=== PATIENT | female | born 1980 | race Caucasian/White ===

== ENCOUNTER 2017-06-26 14:19 | Inpatient (IN) | payer MEDICAID ==
[~2017-06-26] VITALS: Ht 137.2 cm; Wt 61.2 kg
[~2017-06-26 14:19] MED LIST: PRENATAL VIT
[2017-06-26 14:34] VITALS: BP 136/60
--- NOTE | 2017-06-26 16:08 | NUR ---
Patient ambulated to bed 4. RN evaluating patient at bedside.
--- NOTE | 2017-06-26 16:12 | NUR ---
37F BIB FAMILY C/O BL SIDES OF ABDOMEN PRESSURE, NON-RADIATING, 5/10 X 3 DAYS; PT STATES NO N/V/D AT THIS TIME; ABDOMEN SOFT, NON-TENDER, ACTIVE BOWEL SOUNDS X 4 QUADRANTS; PT STATES APPROX 8 WEEKS AT THIS TIME, SAW OB AND PT WAS TOLD BABY HAD NO HEARTBEAT AND PT WOULD NEED A D&C; PT WAS TOLD THERE WERE NO AVAILABLE APPTS FOR THE NEXT 2 WEEKS; PT AA&OX4, PERRLA, BL LUNG SOUNDS CLEAR, RR EVEN/UNLABORED, SKIN IS WARM/DRY/INTACT AT THIS TIME; PT RESTING IN BED WITH HOB ELEVATED AND IN LOWEST POSITION; POSITIONED FOR COMFORT; ER MD MADE AWARE OF STATUS. WILL CONTINUE TO MONITOR.
--- NOTE | 2017-06-26 16:50 | NUR ---
RECEIVED REPORT FROM THE ER NURSE. WILL GET ROOM READY AND WAIT FOR PT TO ARRIVE ON THE UNIT.
[2017-06-26] MEDS ORDERED: ONDANSETRON 4 MG/2 ML VIAL IVP PRN (16:55)
[2017-06-26] MEDS ORDERED: ACETAMINOPHEN 325 MG TAB PO PRN (16:55)
--- NOTE | 2017-06-26 17:07 | NUR ---
REPORT GIVEN TO BERTHA ARCE.
[2017-06-26 17:13] LABS: BASOPHILS # (AUTO) 0.3 K/uL (0.00-0.22); BASOPHILS % (AUTO) 4.2 % (0.0-2.0); EOSINOPHILS # (AUTO) 0.1 K/uL (0-0.4); EOSINOPHILS % (AUTO) 1.5 % (0.0-4.0); HEMATOCRIT 40.8 % (36-48); HEMOGLOBIN 13.3 g/dL (12.0-16.0); LYMPHOCYTES # (AUTO) 1.7 K/uL (2.5-16.5); LYMPHOCYTES % (AUTO) 21.3 % (20.5-51.1); MEAN CORPUSCULAR HEMOGLOBIN 29 pg (27-31); MEAN CORPUSCULAR HGB CONC 33 g/dL (33-37); MEAN CORPUSCULAR VOLUME 88 fL (80-94); MONOCYTES # (AUTO) 0.7 K/uL (0.8-1.0); NEUTROPHILS # (AUTO) 5.2 K/uL (1.8-7.7); PLATELET COUNT (AUTO) 245 K/uL (140-450); RED BLOOD CELL COUNT(AUTO) 4.65 MIL/uL (4.20-5.40); RED CELL DISTRIBUTION WIDTH 13.9 % (11.6-13.7)
--- NOTE | 2017-06-26 17:15 | NUR ---
Patient will be admitted to care of (DR. CLOUD DENTAL AIDE CONSULT). Admited to TELEMETRY. Will go to room 119B. Belongings list completed. Report to BERTHA ARCE.
--- NOTE | 2017-06-26 17:17 | NUR ---
ARRIVED ON THE UNIT ON A GURNEY WITH 2 ER NURSES. PT IS AMBULATING FROM THE GURNEY IN THE HALLWAY TO THE B BED. PT IS AAOX4. ACCOMPANIED BY SISTER IN LAW AND NIECE. SKIN IS INTACT. DENIES PAIN. DENIES VAGINAL BLEEDING. IV R AC 20G SL. V/S WITHIN NORMAL RANGE. MRSA DONE. PT HAD TO USE THE RESTROOM. PT GAIT STEADY. BACK IN BED. WILL START ON ADMISSION PROCESS. WILL CONTINUE TO MONITOR PT.
[2017-06-26 17:25] LABS: ANION GAP 14.7 (8-16); CARBON DIOXIDE 24.2 mmol/L (21-32); CREATININE 0.5 mg/dL (0.6-1.3); POTASSIUM 3.9 mmol/L (3.5-5.1)
[2017-06-26 17:31] LABS: TOTAL BILIRUBIN 0.3 mg/dL (0.0-1.0)
[2017-06-26 17:39] LABS: PROTHROMBIN TIME 10.4 secs (10.8-13.4)
[2017-06-26 17:42] VITALS: BP 101/71
[2017-06-26] MEDS: NACL 0.9% 1,000 ML IV SCH (18:06)
[2017-06-26 18:12] LABS: APPEARANCE,URINE CLEAR (CLEAR); BILIRUBIN,URINE NEGATIVE (NEGATIVE); BLOOD, URINE NEGATIVE (NEGATIVE); COLOR,URINE YELLOW (YELLOW); LEUKOCYTE ESTERASE ,URINE NEGATIVE (NEGATIVE); NITRITE, URINE NEGATIVE (NEGATIVE); UGLUCOSE NEGATIVE (NEGATIVE)
[2017-06-26 18:18] LABS: CHOL/HDL RATIO 3.6 (1-4.5); FREE T4 (FREE THYROXINE) 0.98 ng/dL (0.76-1.46); PHOSPHORUS 4.2 mg/dL (2.5-4.9); THYROID STIMULATING HORMONE 2.22 uIU/mL (0.34-3.74)
[2017-06-26 18:23] LABS: BARBITURATE, URINE NEG. ng/ml (NEG <=200); BENZODIAZEPINE, URINE NEG. ng/mL (NEG <=200); CANNABINOID, URINE NEG. ng/mL (NEG <=50); COCAINE, URINE NEG. ng/mL (NEG <=300); OPIATE, URINE NEG. ng/mL (NEG <=2000); PHENCYCLIDINE SCREEN,URINE NEG. ng/mL (NEG <=25)
--- NOTE | 2017-06-26 18:34 | NUR ---
PT RESTING COMFORTABLY. FAMILY AT BEDSIDE. DENIES PAIN. JUST HUNGRY. STILL WAITING ON DR SYKES FOR DIET. WILL CONTINUE TO MONITOR PT.
--- NOTE | 2017-06-26 19:15 | NUR ---
ENDORSED PT TO THE TRACK CAR OPERATOR NURSE AT BEDSIDE FOR CONTINUITY OF CARE. PT IS IN STABLE CONDITION.
--- NOTE | 2017-06-26 19:20 | NUR ---
RECEIVED FROM AM RN IN BED AWAKE AND ALERT. FAMILY MEMBERS WITH HER. CHINESE SPEAKING. EXPLAINED NPO STATUS TO HER. A/O X 4. ROM X 4. IVF SITE TO RAC#20 INTACT AND NO INFILTRATION NOTED. CALL LIGHT WITH IN REACH AND CARE PLAN FOR THE NIGHT DISCUSSED WITH HER. AFEBRILE. TELEMETRY MONITORING. DX. OF RETAINED PRODUCT OF MISCONCEPTION.
--- NOTE | 2017-06-26 19:40 | NUR ---
PT. REFUSED SEQUENTIALS RT AMBULATES A LOT TO RESTROOM. INDEPENDENT. ROM X 4.
[2017-06-26 19:50] VITALS: BP 91/56
--- NOTE | 2017-06-26 20:53 | NUR ---
CYTOTEC TABLET ORDERED WILL BE DELIVERED BY COUNTER PROFESSIONAL. INFORMED PT. ABOUT ITS USE . "ITALO"
[2017-06-26] MEDS ORDERED: MISOPROSTOL 100 MCG TAB ONE ×2 (21:17→21:18)
[2017-06-26] MEDS: DOCUSATE SODIUM 100 MG GELCAP PO SCH (21:36)
[2017-06-26] MEDS: MISOPROSTOL 100 MCG TAB VG SCH (21:37)
--- NOTE | 2017-06-26 23:44 | NUR ---
MD. Bryson SYKES IN HERE TO SEE PT. WITH RESIDENT MD. HOWARD TO EAT REGULAR DIET NOW RT RESIDENT TOLD RN IN AM TO HOLD FOOD FOR RT WE DON'T KNOW YET IF SHE WILL BE VOMITING OR NAUSEOUS OF THE CYTOTEC. NO NAUSEA AND VOMITING NOTED AT THIS TIME.
[2017-06-27] VITALS (7 sets, daily range): BP systolic 89–110; BP diastolic 52–70
--- NOTE | 2017-06-27 00:07 | NUR ---
PT. PROVIDED WITH DINNER REQUESTED. VERBALIZES WELL. STATED HER PAIN IS TOLERABLE FOR NOW. REFUSED PAIN MEDICATION.
[2017-06-27] MEDS: MISOPROSTOL 100 MCG TAB VG SCH ×4 (00:37→12:22)
[2017-06-27] MEDS: HYDROcodone/APAP 7.5/325 MG 1 TAB PO PRN ×3 (00:43→17:48)
--- NOTE | 2017-06-27 00:51 | NUR ---
COMPLAINED OF LOWER ABDOMINAL PAIN AND SIDES. REQUESTED FOR PAIN RELIEVER. MEDICATED ORDERED. ABLE TO VERBALIZE NEEDS WELL.
[2017-06-27] MEDS ORDERED: MORPHINE SULFATE 2 MG/ML SYR IVP PRN (02:45)
[2017-06-27] MEDS ORDERED: MORPHINE SULFATE 2 MG/ML SYR ONE (03:10)
--- NOTE | 2017-06-27 03:14 | NUR ---
PT. COMPLAINED OF TOO MUCH PAIN NOW AND REQUESTING FOR MORE PAIN RELIEVER. INFORMED MD RESIDENT REYNOLDS PER PT.S REQUEST. WITH NEW ORDER TO GIVE MORPHINE 2 MG IVP NOW. MEDICATED REQUESTED. PT. NOTED WITH TINGED OF BLOOD NOW IN URINE.
[2017-06-27] MEDS ORDERED: MISOPROSTOL 100 MCG TAB ONE ×2 (03:41)
--- NOTE | 2017-06-27 04:02 | NUR ---
SLEEPING POST MORPHINE IVP MEDICATION. WAKES UP EASILY WHEN TOUCHED. NO FURTHER PAIN COMPLAINT AT THIS TIME.
[2017-06-27 06:20] LABS: BASOPHILS # (AUTO) 0.2 K/uL (0.00-0.22); BASOPHILS % (AUTO) 1.5 % (0.0-2.0); EOSINOPHILS # (AUTO) 0.1 K/uL (0-0.4); EOSINOPHILS % (AUTO) 0.7 % (0.0-4.0); HEMATOCRIT 36.7 % (36-48); HEMOGLOBIN 12.2 g/dL (12.0-16.0); LYMPHOCYTES # (AUTO) 1.7 K/uL (2.5-16.5); LYMPHOCYTES % (AUTO) 16.2 % (20.5-51.1); MEAN CORPUSCULAR HEMOGLOBIN 29 pg (27-31); MEAN CORPUSCULAR HGB CONC 33 g/dL (33-37); MEAN CORPUSCULAR VOLUME 87 fL (80-94); MONOCYTES # (AUTO) 0.4 K/uL (0.8-1.0); MONOCYTES % (AUTO) 4.2 % (1.7-9.3); NEUTROPHILS % (AUTO) 77.4 % (42.2-75.2); PLATELET COUNT (AUTO) 256 K/uL (140-450); RED BLOOD CELL COUNT(AUTO) 4.19 MIL/uL (4.20-5.40); RED CELL DISTRIBUTION WIDTH 14.1 % (11.6-13.7); WHITE BLOOD COUNT (AUTO) 10.4 K/uL (4.8-10.8)
[2017-06-27 06:47] LABS: ANION GAP 15.5 (8-16); CARBON DIOXIDE 21.5 mmol/L (21-32); CREATININE 0.5 mg/dL (0.6-1.3)
[2017-06-27 06:52] LABS: MAGNESIUM 1.7 mg/dL (1.8-2.4); PHOSPHORUS 3.6 mg/dL (2.5-4.9)
--- NOTE | 2017-06-27 07:32 | NUR ---
ENDORSED TO THE NEXT RN FOR CONTINUITY OF CARE. SLEEPING. NO RESTLESSNESS NOTED AT THIS TIME. WAKES UP EASILY WHEN TOUCHED OR CALLED BY NAME.
[2017-06-27] MEDS ORDERED: MAG SULF 2000 MG/WATER PREMIX 50 ML IV ONE (07:40)
[2017-06-27] MEDS: DOCUSATE SODIUM 100 MG GELCAP PO SCH ×2 (10:22→20:18)
[2017-06-27] MEDS: MULTIVIT/MIN/CA/FE/FA 1 TAB PO SCH (10:24)
--- NOTE | 2017-06-27 10:25 | NUR ---
ADMINISTERED MORNING MEDS. IT WAS LATE D/T A TRANSFER TO ICU. PT TOLERATED WELL. C/O PAIN. ADMINSTERED PAIN MEDS. WILL CONTINUE TO MONITOR PT.
--- NOTE | 2017-06-27 10:50 | NUR ---
PATIENT HAS BEEN SCREENED AND CATEGORIZED MODERATE NUTRITION RISK. PATIENT WILL BE SEEN WITHIN 3-5 DAYS OF ADMISSION. 06/29/17 - 07/01/17 OPAL SANCHEZ MBA, RD
--- NOTE | 2017-06-27 13:10 | NUR ---
PT RESTING COMFORTABLY. FAMILY AT BEDSIDE. NO SIGNS OF DISTRESS. WILL CONTINUE TO MONITOR PT.
--- NOTE | 2017-06-27 15:00 | NUR ---
PT HAD A SMALL SAC LIKE PRODUCT IN THE TOILET. DIAMETER SIZE OF A QUARTER. PT CLAIMS SHE IS STILL BLEEDING. CHANGED 3 PADS SO FAR. DENIES PAIN. FAMILY AT BEDSIDE. WILL CONTINUE TO MONITOR PT.
[2017-06-27] MEDS: NACL 0.9% 1,000 ML IV SCH ×2 (17:41→17:48)
--- NOTE | 2017-06-27 17:49 | NUR ---
ADMINISTERED PAIN MED AND NEW NS BAG. PT TOLERATED WELL. WILL CONTINUE TO MONITOR PT.
--- NOTE | 2017-06-27 19:15 | NUR ---
RECEIVED REPORT FROM DAY SHIFT NURSE AT PT BEDSIDE. PT IS A/OX4 ON ROOM AIR, SAMI SPEAKING. SKIN INTACT, PT HAS 20 GAUGE IV ON HER RIGHT AC INFUSING NS@ 50ML/HR, ASYMPTOMATIC AND INTACT, PT DENIES PAIN AT THIS TIME. NO SIGNS OF DISTRESS NOTED, PT IS IN STABLE CONDITION. DISCUSSED PLAN OF CARE WITH PT, PT VERBALIZED UNDERSTANDING, PT [id number] IS AT BEDSIDE. BED IN LOW POSITION, CALL LIGHT IS WITHIN REACH. WILL CONTINUE TO MONITOR.
--- NOTE | 2017-06-27 20:25 | NUR ---
ADMINISTERED SCHEDULED MEDICATIONS, PT TOLERATED WELL. NO SIGNS OF DISTRESS NOTED. PT IN STABLE CONDITION. BED IN LOW POSITION, CALL LIGHT IS WITHIN REACH. WILL CONTINUE TO MONITOR.
--- NOTE | 2017-06-27 22:45 | NUR ---
PT RESTING, SLEEPING, IN STABLE CONDITION. NO SIGNS OF DISTRESS NOTED. BED IN LOW POSITION, CALL LIGHT IS WITHIN REACH. WILL CONTINUE TO MONITOR.
[2017-06-28] VITALS: BP 91/59
--- NOTE | 2017-06-28 01:00 | NUR ---
PT AWAKE, DENIES PAIN AT THIS TIME. PT STABLE, NO SIGNS OF DISTRESS NOTED. BED IN LOW POSITION, CALL LIGHT WITHIN REACH. WILL CONTINUE TO MONITOR.
--- NOTE | 2017-06-28 02:47 | NUR ---
FIXED TELE LEADS. PT RESTING. FREE OF DISTRESS. PT STABLE. BED IN LOW POSITION, CALL LIGHT WITHIN REACH. WILL CONTINUE TO MONITOR.
[2017-06-28 04:00] VITALS: BP 93/61
--- NOTE | 2017-06-28 04:20 | NUR ---
PT RESTING, SLEEPING, FREE OF DISTRESS. PT STABLE. VITAL SIGNS WITHIN NORMAL LIMITS. BED IN LOW POSITION, CALL LIGHT WITHIN REACH. WILL CONTINUE TO MONITOR.
--- NOTE | 2017-06-28 05:30 | NUR ---
PT STATES SHE HAS CHANGED TWO PADS TONIGHT BUT THEY WERE NOT SOAKED. SUPERVISOR AGENCY APPOINTMENTS CHANGED BED LINEN BECAUSE THE LINEN GOT A LITTLE STAINED WITH BLOOD. PT STABLE, NO SIGNS OF DISTRESS NOTED. BED IN LOW POSITION, CALL LIGHT IS WITHIN REACH. WILL CONTINUE TO MONITOR.
--- NOTE | 2017-06-28 06:15 | NUR ---
ASKED PT TO GIVE ME AN ESTIMATE OF HER WEIGHT BECAUSE HER CHART SAYS SHE WEIGHS 726KG (1600LBS) AND THAT DOESN'T SEEM RIGHT. PT STATED SHE WEIGHS ABOUT 133LBS. PT IS STABLE. NO SIGNS OF DISTRESS NOTED. BED IN LOW POSITION, CALL LIGHT IS WITHIN REACH. WILL CONTINUE TO MONITOR.
[2017-06-28 06:19] LABS: BASOPHILS # (AUTO) 0.2 K/uL (0.00-0.22); BASOPHILS % (AUTO) 2.1 % (0.0-2.0); EOSINOPHILS # (AUTO) 0.3 K/uL (0-0.4); EOSINOPHILS % (AUTO) 3.4 % (0.0-4.0); HEMATOCRIT 35.3 % (36-48); HEMOGLOBIN 11.6 g/dL (12.0-16.0); LYMPHOCYTES # (AUTO) 2.7 K/uL (2.5-16.5); LYMPHOCYTES % (AUTO) 31.6 % (20.5-51.1); MEAN CORPUSCULAR HEMOGLOBIN 29 pg (27-31); MEAN CORPUSCULAR HGB CONC 33 g/dL (33-37); MEAN CORPUSCULAR VOLUME 89 fL (80-94); MONOCYTES # (AUTO) 0.6 K/uL (0.8-1.0); MONOCYTES % (AUTO) 7.3 % (1.7-9.3); NEUTROPHILS # (AUTO) 4.6 K/uL (1.8-7.7); NEUTROPHILS % (AUTO) 55.6 % (42.2-75.2); PLATELET COUNT (AUTO) 208 K/uL (140-450); RED BLOOD CELL COUNT(AUTO) 3.98 MIL/uL (4.20-5.40); RED CELL DISTRIBUTION WIDTH 14.3 % (11.6-13.7); WHITE BLOOD COUNT (AUTO) 8.4 K/uL (4.8-10.8)
[2017-06-28 06:44] LABS: ANION GAP 14.4 (8-16); CARBON DIOXIDE 22.3 mmol/L (21-32); CREATININE 0.4 mg/dL (0.6-1.3); POTASSIUM 3.7 mmol/L (3.5-5.1)
[2017-06-28 06:48] LABS: MAGNESIUM 1.9 mg/dL (1.8-2.4); PHOSPHORUS 3.5 mg/dL (2.5-4.9)
--- NOTE | 2017-06-28 07:35 | NUR ---
ENDORSED PT TO DAY SHIFT RN AT BEDSIDE FOR CONTINUITY OF CARE. PT IS STABLE.
--- NOTE | 2017-06-28 07:40 | NUR ---
PATIENT RECEIVED ASLEEP, EASY TO AROUSE. PATIENT IS ALERT AND ORIENTED ABLE TO MAKE NEEDS KNOWN. DENEIS PAIN AND REPORTS THAT LOCHIA IS VERY SCANT.
[2017-06-28 08:42] VITALS: BP 85/56
[2017-06-28] MEDS ORDERED: PRETAB PO (10:13)
[2017-06-28] MEDS ORDERED: ACET-1182 PO (10:13)
[2017-06-28] MEDS ORDERED: IBUP-2213 PO (10:13)
--- NOTE | 2017-06-28 12:15 | NUR ---
PATIENT AWAKE AND SITTING UP IN BED, HOPING TO GO HOME TODAY
[2017-06-28 12:44] VITALS: BP 99/69
[2017-06-28] MEDS: DOCUSATE SODIUM 100 MG GELCAP PO SCH (13:55)
[2017-06-28] MEDS: MULTIVIT/MIN/CA/FE/FA 1 TAB PO SCH (14:15)
[2017-06-28 16:00] VITALS: BP 98/70
--- NOTE | 2017-06-28 16:45 | NUR ---
PATIENT DISCHARGED TO HOME. IV REMOVED INTACT. PATIENT GIVEN DISCHARGE INSTRUCTIONS BY STUDENT NURSE AND WAS ABLE TO VERBALIZE IMPORTANCE OF FOLLOW UP WITH HER DOCTOR. TELE UNIT REMOVED AND PATIENT DISCHARGED HOME WITH ALL BELONGINGS
== END 2017-06-28 16:40 | disposition home or self-care (01) | DRG 564 ==
LOC: MED 14:19 → MTU 17:01
PROVIDERS: ADMIT Student in an Organized Health Care Education/Training Program; ATTEND Student in an Organized Health Care Education/Training Program
PROC: 10A07ZX Abortion of Products of Conception, Abortifacient, Via Natural or Artificial Opening (ICD-10-PCS; principal; 2017-06-26)
DX: O03.4 Incomplete spontaneous abortion without complication (principal); E83.42 Hypomagnesemia; O99.284 Endocrine, nutritional and metabolic diseases complicating childbirth; E78.5 Hyperlipidemia, unspecified; N88.8 Other specified noninflammatory disorders of cervix uteri; N83.291 Other ovarian cyst, right side; E66.01 Morbid (severe) obesity due to excess calories; O99.211 Obesity complicating pregnancy, first trimester; R74.0 Nonspecific elevation of levels of transaminase and lactic acid dehydrogenase [LDH]; Z68.38 Body mass index [BMI] 38.0-38.9, adult
CPT/HCPCS: 36415; 76817; 80048; 80053; 80305; 81003; 82140; 82150; 83036; 83605; 83690; 83735; 83880; 84100; 84439; 84443; 84484; 84702; 85025; 85610; 85730; 86900; 86901; 87040; 87081; 87086; 93005; 99285; J2270; J3475; J7030

== ENCOUNTER 2019-03-26 17:11 | Emergency (ER) | payer MEDICAID ==
[~2019-03-26] VITALS: Ht 154.9 cm; Wt 61.2 kg
[~2019-03-26 17:11] MED LIST changes: +ACET-1182 PO; +IBUP-2213 PO; -PRENATAL VIT; +PRETAB PO
[2019-03-26 17:20] VITALS: BP 106/65
--- NOTE | 2019-03-26 17:20 | NUR ---
TO BED # 02 AMBULATORY
--- NOTE | 2019-03-26 17:50 | NUR ---
PT C/O LLQ CRAMPING ABDOMINAL PAIN RADIATES TO THE LEFT LOWER BACK SINCE YESTERDAY. PT IS 8 WEEKS AND HAS NOT SEEN OB. DENIES V/N/D. SKIN IS PINK/WARM/DRY; AAOX4 WITH EVEN AND STEADY GAIT; LUNGS CLEAR BL; HR EVEN AND REGULAR; PT DENIES ANY FEVER, CP, SOB, OR COUGH AT THIS TIME; PATIENT STATES PAIN OF 7/10 AT THIS TIME; VSS; PATIENT POSITIONED FOR COMFORT; HOB ELEVATED; BEDRAILS UP X1; BED DOWN. ER MD MADE AWARE OF PT STATUS.
--- NOTE | 2019-03-26 17:59 | NUR ---
Dr. Torres evaluating patient at bedside.
[2019-03-26] MEDS ORDERED: ACETAMINOPHEN EXTRA STRENGTH 500 MG TAB PO ONE (18:05)
[2019-03-26 19:00] VITALS: BP 96/65
--- NOTE | 2019-03-26 19:00 | NUR ---
Patient discharged with v/s stable. Written and verbal after care instructions given and explained. Patient verbalized understanding. Ambulatory with steady gait. All questions addressed prior to discharge. Advised to follow up with PMD.
== END 2019-03-26 19:00 | disposition home or self-care (01) ==
LOC: MED 17:11
DX: O26.891 Other specified pregnancy related conditions, first trimester (principal); R10.32 Left lower quadrant pain; Z3A.01 Less than 8 weeks gestation of pregnancy; Z98.890 Other specified postprocedural states; Z79.899 Other long term (current) drug therapy
CPT/HCPCS: 81002; 81025; 99282

== ENCOUNTER 2019-05-04 14:48 | Emergency (ER) | payer MEDICAID ==
[~2019-05-04] VITALS: Ht 154.9 cm; Wt 63.5 kg
[2019-05-04 15:30] VITALS: BP 108/63
--- NOTE | 2019-05-04 15:40 | NUR ---
PT TO WAIT IN ER LOBBY. [id number]
--- NOTE | 2019-05-04 16:41 | NUR ---
Brianna chacon in [facility] - 05/04/19 at 1647 by [facility] PT TO ER BED 4
--- NOTE | 2019-05-04 17:25 | NUR ---
Patient taken to bed 7.
--- NOTE | 2019-05-04 17:25 | NUR ---
BIB . AAO X4 C/O ABDOMINAL PAIN 12/11 SINCE YESTERDAY. PT DENIES VAGINAL BLEEDING, TRAUMA/INJURY. PT WAS SENT BY PCP FOR OB US FOR THREATENED . PT STATES LMP 01/31/19, 13 WEEKS , A1. PT DENIES FEVER, N/V/D. ER TO EVALUATE PT.
--- NOTE | 2019-05-04 18:39 | NUR ---
DR. SARAH AT BEDSIDE.
[2019-05-04 18:54] VITALS: BP 105/70
--- NOTE | 2019-05-04 18:57 | NUR ---
Patient discharged with v/s stable. Written and verbal after care instructions given and explained. Patient alert, oriented and verbalized understanding of instructions. Ambulatory with steady gait. All questions addressed prior to discharge. ID band removed. Patient advised to follow up with PMD. Rx of ZOFRAN 8 MG given. Patient educated on indication of medication including possible reaction and side effects. Opportunity to ask questions provided and answered.
== END 2019-05-04 18:57 | disposition home or self-care (01) ==
LOC: MED 14:48
DX: O21.8 Other vomiting complicating pregnancy (principal); O26.891 Other specified pregnancy related conditions, first trimester; R10.32 Left lower quadrant pain; Z3A.12 12 weeks gestation of pregnancy; Z98.890 Other specified postprocedural states; Z79.899 Other long term (current) drug therapy
CPT/HCPCS: 76801; 81002; 81025; 99284

== ENCOUNTER 2019-09-01 09:47 | Observation (INO) | payer MEDICAID ==
[~2019-09-01] VITALS: Ht 142.2 cm; Wt 66.2 kg
[2019-09-01] MEDS ORDERED: NOVN SUBQ (10:26)
[2019-09-01] MEDS ORDERED: NOVR SUBQ (10:26)
[2019-09-01 10:35] VITALS: BP 115/72
[2019-09-01] MEDS ORDERED: INFLUENZA VACCINE QUAD 0.5 ML SYR IMVAC PRN (10:40)
== END 2019-09-01 12:22 | disposition home or self-care (01) ==
LOC: MLD 09:47
PROVIDERS: ADMIT Obstetrics & Gynecology; ATTEND Obstetrics & Gynecology
DX: O24.419 Gestational diabetes mellitus in pregnancy, unspecified control (principal); Z3A.31 31 weeks gestation of pregnancy
CPT/HCPCS: 59025; 76815; G0378; Q0092; 90715

== ENCOUNTER 2019-09-04 14:01 | Observation (INO) | payer MEDICAID ==
[~2019-09-04] VITALS: Ht 129.5 cm; Wt 66.2 kg
[~2019-09-04 14:01] MED LIST changes: +NOVN SUBQ; +NOVR SUBQ
[2019-09-04 16:43] LABS: BASOPHILS % (AUTO) 0.3 % (0.0-2.0); EOSINOPHILS # (AUTO) 0.1 K/uL (0-0.4); EOSINOPHILS % (AUTO) 1.4 % (0.0-4.0); HEMATOCRIT 33.2 % (36-48); HEMOGLOBIN 10.8 g/dL (12.0-16.0); LYMPHOCYTES # (AUTO) 1.3 K/uL (2.5-16.5); LYMPHOCYTES % (AUTO) 16.2 % (20.5-51.1); MEAN CORPUSCULAR HEMOGLOBIN 26 pg (27-31); MEAN CORPUSCULAR HGB CONC 32 g/dL (33-37); MONOCYTES # (AUTO) 0.7 K/uL (0.8-1.0); MONOCYTES % (AUTO) 7.9 % (1.7-9.3); NEUTROPHILS # (AUTO) 6.2 K/uL (1.8-7.7); NEUTROPHILS % (AUTO) 74.2 % (42.2-75.2); PLATELET COUNT (AUTO) 263 K/uL (140-450); RED CELL DISTRIBUTION WIDTH 14.9 % (11.6-13.7); WHITE BLOOD COUNT (AUTO) 8.3 K/uL (4.8-10.8)
[2019-09-04 17:01] LABS: ANION GAP 18.1 (8-16); CARBON DIOXIDE 18.6 mmol/L (21-32); CREATININE 0.4 mg/dL (0.6-1.3); POTASSIUM 3.7 mmol/L (3.5-5.1)
[2019-09-04 17:07] LABS: ALBUMIN 2.5 g/dL (3.4-5.0); TOTAL BILIRUBIN 0.2 mg/dL (0.0-1.0)
[2019-09-04 20:25] VITALS: BP 115/72
== END 2019-09-04 21:00 | disposition home or self-care (01) ==
LOC: MLD 14:01 → MFCC 14:23
PROVIDERS: ADMIT Obstetrics & Gynecology; ATTEND Obstetrics & Gynecology
DX: O24.419 Gestational diabetes mellitus in pregnancy, unspecified control (principal); Z3A.32 32 weeks gestation of pregnancy
CPT/HCPCS: 36415; 76819; 80053; 82948; 85025; 86886; 86900; 86901; G0378; Q0092; 59025; 81000

== ENCOUNTER 2019-10-21 16:41 | Inpatient (IN) | payer MEDICAID ==
[~2019-10-21] VITALS: Ht 127 cm; Wt 67.1 kg
[~2019-10-21 16:41] MED LIST changes: -ACET-1182 PO; -IBUP-2213 PO
[2019-10-21] MEDS ORDERED: CITRIC ACID/SODIUM CITRATE 30 ML UDC PO SCH (17:35)
[2019-10-21] MEDS ORDERED: LACTATED RINGERS 1,000 ML IV SCH (17:35)
[2019-10-21 18:18] LABS: BASOPHILS % (AUTO) 0.4 % (0.0-2.0); EOSINOPHILS # (AUTO) 0.1 K/uL (0-0.4); EOSINOPHILS % (AUTO) 1.1 % (0.0-4.0); HEMOGLOBIN 11.1 g/dL (12.0-16.0); LYMPHOCYTES # (AUTO) 2.1 K/uL (2.5-16.5); LYMPHOCYTES % (AUTO) 28.4 % (20.5-51.1); MEAN CORPUSCULAR HEMOGLOBIN 25 pg (27-31); MEAN CORPUSCULAR HGB CONC 32 g/dL (33-37); MONOCYTES # (AUTO) 0.4 K/uL (0.8-1.0); MONOCYTES % (AUTO) 5.9 % (1.7-9.3); NEUTROPHILS # (AUTO) 4.8 K/uL (1.8-7.7); NEUTROPHILS % (AUTO) 64.2 % (42.2-75.2); PLATELET COUNT (AUTO) 202 K/uL (140-450); RED BLOOD CELL COUNT(AUTO) 4.42 MIL/uL (4.20-5.40); RED CELL DISTRIBUTION WIDTH 16.2 % (11.6-13.7); WHITE BLOOD COUNT (AUTO) 7.5 K/uL (4.8-10.8)
[2019-10-21 19:20] VITALS: BP 125/82
[2019-10-21 19:20] LABS: ANION GAP 18.4 (8-16); CARBON DIOXIDE 20.7 mmol/L (21-32); CREATININE 0.7 mg/dL (0.6-1.3); POTASSIUM 4.1 mmol/L (3.5-5.1)
[2019-10-21 19:22] LABS: APPEARANCE,URINE CLEAR (CLEAR); BILIRUBIN,URINE NEGATIVE (NEGATIVE); BLOOD, URINE NEGATIVE (NEGATIVE); COLOR,URINE YELLOW (YELLOW); LEUKOCYTE ESTERASE ,URINE NEGATIVE (NEGATIVE); NITRITE, URINE NEGATIVE (NEGATIVE); UGLUCOSE NEGATIVE (NEGATIVE)
[2019-10-21] MEDS ORDERED: ceFAZolin 1,000 MG VIAL ONE (19:23)
[2019-10-21 19:26] LABS: ALBUMIN 2.4 g/dL (3.4-5.0); TOTAL BILIRUBIN 0.2 mg/dL (0.0-1.0)
[2019-10-21 19:27] LABS: PROTHROMBIN TIME 9.2 secs (10.8-13.4); URIC ACID 3.4 mg/dL (2.6-7.2)
[2019-10-21 19:38] LABS: RBC,URINE 0 /HPF (0-5)
[2019-10-21 19:39] LABS: HYALINE CASTS, URINE 0-10 /LPF (None Seen); WBC,URINE 0-5 /HPF (0-5)
[2019-10-21] MEDS ORDERED: BUPIVACAINE-MPF 0.75% 10 ML VIAL INJ ONE (19:51)
[2019-10-21] MEDS ORDERED: fentaNYL 0.05 MG/ML VIAL ONE (19:51)
[2019-10-21] MEDS ORDERED: MORPHINE PRES FREE 10 MG/10 ML AMP IV ONE (19:51)
[2019-10-21] MEDS ORDERED: BLOOD GLUCOSE MONITORING 1 DEV DEV FS ONE (20:30)
[2019-10-21] MEDS ORDERED: ONDANSETRON 4 MG/2 ML VIAL IVP PRN ×2 (20:30)
[2019-10-21] MEDS ORDERED: NALBUPHINE 10 MG/ML AMP IVP PRN (20:30)
[2019-10-21] MEDS ORDERED: NALOXONE 0.4 MG/ML VIAL IVP PRN ×3 (20:30)
--- NOTE | 2019-10-21 20:58 | NUR ---
Called to OR for repeat , arrived at 2019, baby was born and taken to warmer, warmed dried and stimulated, CPAP +5 21%was applied at 50 seconds of life for 20 seconds, baby responded to CPAP with vigorous cry and color gain to pink, 6/[address].
[2019-10-21] MEDS: OXYTOCIN 20 UNITS in LACTATED RINGERS 1,000 ML IV SCH (21:29)
[2019-10-21] MEDS ORDERED: BISACODYL 5 MG TABEC PO PRN (21:30)
[2019-10-21] MEDS ORDERED: METHYLERGONOVINE 0.2 MG/ML AMP IM PRN (21:30)
[2019-10-21] MEDS ORDERED: MEASLES, MUMPS, AND RUBELLA 1 VIAL SQVAC PRN (21:30)
[2019-10-21] MEDS ORDERED: OXYTOCIN 20 UNITS/LR PREMIX 1,000 ML IV ONE (21:36)
[2019-10-21] MEDS: diphenhydrAMINE 50 MG/ML VIAL IVP PRN (22:10)
[2019-10-22] MEDS: diphenhydrAMINE 50 MG/ML VIAL IVP PRN ×2 (02:12→06:43)
[2019-10-22] MEDS: KETOROLAC 30 MG/ML VIAL IVP PRN ×2 (02:15→18:44)
[2019-10-22 07:24] LABS: BASOPHILS % (AUTO) 0.2 % (0.0-2.0); EOSINOPHILS % (AUTO) 0.4 % (0.0-4.0); HEMATOCRIT 29.8 % (36-48); HEMOGLOBIN 9.6 g/dL (12.0-16.0); MEAN CORPUSCULAR HEMOGLOBIN 25 pg (27-31); MEAN CORPUSCULAR HGB CONC 32 g/dL (33-37); MONOCYTES # (AUTO) 0.4 K/uL (0.8-1.0); MONOCYTES % (AUTO) 4.5 % (1.7-9.3); NEUTROPHILS # (AUTO) 7.1 K/uL (1.8-7.7); NEUTROPHILS % (AUTO) 73.9 % (42.2-75.2); PLATELET COUNT (AUTO) 154 K/uL (140-450); RED BLOOD CELL COUNT(AUTO) 3.78 MIL/uL (4.20-5.40); RED CELL DISTRIBUTION WIDTH 16.3 % (11.6-13.7); WHITE BLOOD COUNT (AUTO) 9.6 K/uL (4.8-10.8)
[2019-10-22] MEDS: OXYTOCIN 20 UNITS in LACTATED RINGERS 1,000 ML IV SCH ×2 (07:30→15:45)
[2019-10-22] MEDS ORDERED: IBUPROFEN 600 MG TAB PO SCH (18:30)
[2019-10-23] MEDS: oxyCODONE/APAP 5/325 MG 1 TAB TAB PO SCH ×3 (00:20→11:41)
--- NOTE | 2019-10-23 08:40 | NUR ---
PATIENT HAS BEEN SCREENED AND CATEGORIZED LOW NUTRITION RISK. PATIENT WILL BE SEEN WITHIN 7 DAYS OF ADMISSION. 10/28/[address]
[2019-10-23 09:21] LABS: BASOPHILS % (AUTO) 0.3 % (0.0-2.0); EOSINOPHILS # (AUTO) 0.1 K/uL (0-0.4); EOSINOPHILS % (AUTO) 1.7 % (0.0-4.0); HEMATOCRIT 28.4 % (36-48); HEMOGLOBIN 9.2 g/dL (12.0-16.0); LYMPHOCYTES # (AUTO) 2.1 K/uL (2.5-16.5); LYMPHOCYTES % (AUTO) 25.3 % (20.5-51.1); MEAN CORPUSCULAR HEMOGLOBIN 26 pg (27-31); MEAN CORPUSCULAR HGB CONC 32 g/dL (33-37); MEAN CORPUSCULAR VOLUME 79.7 fL (80-94); MONOCYTES # (AUTO) 0.5 K/uL (0.8-1.0); MONOCYTES % (AUTO) 6.4 % (1.7-9.3); NEUTROPHILS # (AUTO) 5.6 K/uL (1.8-7.7); NEUTROPHILS % (AUTO) 66.3 % (42.2-75.2); PLATELET COUNT (AUTO) 162 K/uL (140-450); RED BLOOD CELL COUNT(AUTO) 3.56 MIL/uL (4.20-5.40); WHITE BLOOD COUNT (AUTO) 8.4 K/uL (4.8-10.8)
[2019-10-23] MEDS: IBUPROFEN 600 MG TAB PO SCH ×2 (09:27→14:52)
[2019-10-23] MEDS ORDERED: IBUPROFEN 600 MG TAB PO PRN (18:55)
[2019-10-23] MEDS ORDERED: oxyCODONE/APAP 5/325 MG 1 TAB TAB PO PRN (18:55)
[2019-10-23] MEDS ORDERED: IBUPROFEN 600 MG TAB PO SCH (21:00)
== END 2019-10-24 15:05 | disposition home or self-care (01) | DRG 540 ==
LOC: MLD 16:41 → MFCC 22:08
PROVIDERS: ADMIT Obstetrics & Gynecology; ATTEND Obstetrics & Gynecology
PROC: 10D00Z1 Extraction of Products of Conception, Low, Open Approach (ICD-10-PCS; principal; 2019-10-21 20:00)
DX: O34.211 Maternal care for low transverse scar from previous cesarean delivery (principal); E66.9 Obesity, unspecified; Z37.0 Single live birth; O13.4 Gestational [pregnancy-induced] hypertension without significant proteinuria, complicating childbirth; O99.824 Streptococcus B carrier state complicating childbirth; O99.214 Obesity complicating childbirth; O24.424 Gestational diabetes mellitus in childbirth, insulin controlled; Z3A.39 39 weeks gestation of pregnancy; O69.81X0 Labor and delivery complicated by cord around neck, without compression, not applicable or unspecified
CPT/HCPCS: 36415; 80053; 81001; 82948; 84550; 85025; 85384; 85610; 85730; 86592; 86886; 86900; 86901; J0690; J1200; J1885; J2270; J2405; J2590; J3010; J3490; J7060; J7120

== ENCOUNTER 2023-05-02 17:04 | Emergency (ER) | payer MEDICAID ==
[~2023-05-02] VITALS: Ht 157.5 cm; Wt 70.3 kg
[2023-05-02 17:27] VITALS: BP 123/79; PULSE 104; RESP 17; TEMP 97.4; O2SAT 98
[2023-05-02 18:37] LABS: BASOPHILS # (AUTO) 0.1 K/uL (0.00-0.22); BASOPHILS % (AUTO) 0.7 % (0.0-2.0); EOSINOPHILS # (AUTO) 0.3 K/uL (0-0.4); EOSINOPHILS % (AUTO) 3.4 % (0.0-4.0); HEMATOCRIT 25.1 % (36-48); HEMOGLOBIN 7.5 g/dL (12.0-16.0); LYMPHOCYTES # (AUTO) 3.1 K/uL (2.5-16.5); LYMPHOCYTES % (AUTO) 29.7 % (20.5-51.1); MEAN CORPUSCULAR HEMOGLOBIN 21 pg (27-31); MEAN CORPUSCULAR HGB CONC 30 g/dL (33-37); MEAN CORPUSCULAR VOLUME 68.5 fL (80-94); MONOCYTES # (AUTO) 0.8 K/uL (0.8-1.0); MONOCYTES % (AUTO) 7.9 % (1.7-9.3); NEUTROPHILS % (AUTO) 58.3 % (42.2-75.2); PLATELET COUNT (AUTO) 332 K/uL (140-450); RED BLOOD CELL COUNT(AUTO) 3.67 MIL/uL (4.20-5.40); RED CELL DISTRIBUTION WIDTH 18.5 % (11.6-13.7); WHITE BLOOD COUNT (AUTO) 10.3 K/uL (4.8-10.8)
[2023-05-02 18:47] LABS: CARBON DIOXIDE 24.9 mmol/L (21-32); CREATININE 0.4 mg/dL (0.6-1.3); POTASSIUM 3.9 mmol/L (3.5-5.1)
[2023-05-02] MEDS ORDERED: FERR-20 PO ×2 (20:05→20:39)
[2023-05-02] MEDS ORDERED: MEDR10TA PO ×2 (20:05→20:39)
[2023-05-02 20:30] VITALS: BP 123/79; PULSE 104; RESP 17; TEMP 97.4; O2SAT 98
--- NOTE | 2023-05-02 20:30 | NUR ---
Patient discharged with v/s stable. Written and verbal after care instructions given and explained. Patient alert, oriented and verbalized understanding of instructions GIVEN BY SUKHWINDER CHRISTIAN Ambulatory with steady gait. All questions addressed prior to discharge. ID band removed. Patient advised to follow up with PMD. Rx of FERROUS SULFATE, PROVERA given. Patient educated on indication of medication including possible reaction and side effects. Opportunity to ask questions provided and answered.
== END 2023-05-02 20:38 | disposition home or self-care (01) ==
LOC: MED 17:04
DX: N92.0 Excessive and frequent menstruation with regular cycle (principal); D50.9 Iron deficiency anemia, unspecified; Z79.899 Other long term (current) drug therapy
CPT/HCPCS: 36415; 76856; 80048; 81002; 81025; 85025; 86886; 86900; 86901; 93976; 99284; Q0092